=== PATIENT | female | born 1955 | race Caucasian/White ===

== ENCOUNTER → 2016-05-21 17:28 | Outpatient (CLI) | payer MEDICARE ==
[2014-05-23 12:30] VITALS: BMI 40.0
[~2016-05-21 17:28] MED LIST: AMBIEN10 MG PO; BAYER CHEWABLE81 MG PO; BRILINTA90 MG PO; CYCLOBENZAPRINE10 MG PO; EFFEXOR75 MG PO; GEMFIBROZIL600 MG PO; GLUCOPHAGE1000 MG PO; PRAVACHOL40 MG PO; RELAFEN500 MG PO; TIROSINT50 MCG PO; ULTRAM ER100 MG PO
== END | disposition home or self-care (01) ==
LOC: D.MAMMO 13:45
DX: Z12.31 Encounter for screening mammogram for malignant neoplasm of breast (principal)

== ENCOUNTER → 2016-06-16 16:34 | Outpatient (CLI) | payer MEDICARE ==
[2014-05-23 12:30] VITALS: BMI 40.0
== END | disposition home or self-care (01) ==
LOC: D.MAMMO 13:30
DX: R92.8 Other abnormal and inconclusive findings on diagnostic imaging of breast (principal)

== ENCOUNTER → 2016-08-19 19:04 | Outpatient (CLI) | payer MEDICARE ==
[2014-05-23 12:30] VITALS: BMI 40.0
== END | disposition home or self-care (01) ==
LOC: D.LABREF 19:04
DX: N39.0 Urinary tract infection, site not specified (principal)

== ENCOUNTER → 2016-10-19 19:18 | Outpatient (CLI) | payer MEDICARE ==
[2014-05-23 12:30] VITALS: BMI 40.0
== END | disposition home or self-care (01) ==
LOC: D.LABREF 19:18
DX: N39.0 Urinary tract infection, site not specified (principal)

== ENCOUNTER → 2016-12-03 18:50 | Outpatient (CLI) | payer MEDICARE ==
[2014-05-23 12:30] VITALS: BMI 40.0
== END | disposition home or self-care (01) ==
LOC: D.LABREF 18:50
DX: N39.0 Urinary tract infection, site not specified (principal)

== ENCOUNTER → 2016-12-16 16:40 | Outpatient (CLI) | payer MEDICARE ==
[2014-05-23 12:30] VITALS: BMI 40.0
== END | disposition home or self-care (01) ==
LOC: D.LABREF 16:40
DX: N39.0 Urinary tract infection, site not specified (principal)

== ENCOUNTER → 2017-01-04 21:05 | Outpatient (CLI) | payer MEDICARE ==
[2014-05-23 12:30] VITALS: BMI 40.0
== END | disposition home or self-care (01) ==
LOC: D.LABREF 21:05
DX: N39.0 Urinary tract infection, site not specified (principal)

== ENCOUNTER → 2017-02-02 18:57 | Outpatient (CLI) | payer MEDICARE ==
[2014-05-23 12:30] VITALS: BMI 40.0
== END | disposition home or self-care (01) ==
LOC: D.LABREF 18:57
DX: N39.0 Urinary tract infection, site not specified (principal)

== ENCOUNTER → 2017-07-12 16:52 | Outpatient (CLI) | payer MEDICARE ==
[2014-05-23 12:30] VITALS: BMI 40.0
== END | disposition home or self-care (01) ==
LOC: D.MAMMO 10:30
DX: R92.8 Other abnormal and inconclusive findings on diagnostic imaging of breast (principal)

== ENCOUNTER → 2018-01-12 21:55 | Outpatient (CLI) | payer MEDICARE ==
[2014-05-23 12:30] VITALS: BMI 40.0
== END | disposition home or self-care (01) ==
LOC: D.MAMMO 09:00
DX: R92.8 Other abnormal and inconclusive findings on diagnostic imaging of breast (principal)

== ENCOUNTER → 2019-01-03 09:09 | Outpatient (CLI) | payer MEDICARE, OTHER ==
[2014-05-23 12:30] VITALS: BMI 40.0
--- NOTE | 2019-01-12 08:42 | EC ---
PATIENT:ARGENIS ORANTES DATE OF SERVICE: 01/03/19 SEX: F MEDICAL RECORD: [id number] DATE OF : 51 [facility] AGE OF PATIENT: 63 ADMISSION DATE: 01/03/19 REFERRING PHYSICIAN: INTERPRETING PHYSICIAN: AMELIA KRUEGER MD ECHOCARDIOGRAM REPORT ECHO CHARGES 4 ECHO COMPLETE Date: 01/03/19 CLINICAL DIAGNOSIS: H/O CAD/HTN ECHOCARDIOGRAPHIC MEASUREMENTS (adult normal given) AC root (d.<3.7cm) 3.7 cm LV Septum d (<1.2 cm> 1.4 cm Valve Excursion 1.7 cm LV Septum (systole) 1.7 cm Left Atria (s.<4.0cm> 3.6 cm LVPW d(<1.2cm) 1.1 cm RV (d.<2.3cm) 2.3 cm LVPW (sytole) 1.9 cm LV diastole(<5.6CM) 5.0 cm MV E-F(>70mm/sec) cm LV systole 2.6 cm LVOT Diameter 1.7 cm MV exc.(>10mm) cm Est.ejection fraction (50-75%) % DOPPLER: LVIT cm/sec A 120 cm/sec E 84.0 cm/sec LA cm/sec RVSP 18.0 mmHg LVOT 116 cm/sec AOP1/2T m/s Asc. Ao 170 cm/sec RVOT 81.0 cm/sec RA cm/sec PA 120 cm/sec AV Gradient Peak 12.0 mmHg AV Mean 6.4 mmHg AV Area 1.5 cm MV Gradient Peak 7.5 mmHg MV Mean 2.3 mmHg MV Area cm COMMENTS: OP - HC Director Of Testing: Juaquin BRITTOE [employer] Instructor: 3 Dr. Mcgowan TAPE# PACS Pericardial Effusion Y DATE OF SERVICE: 01/03/2019 Adequate 2D, color flow imaging, spectral Doppler, and M-Mode Borderline LVH. LV internal dimension is normal. Wall motion is normal. EF is greater than or equal to 55%. Aortic valve is tricuspid. No evidence of stenosis by Doppler interrogation. Left atrium normal at 3.6 cm. Mitral valve shows no prolapse. Trace MR. Right-sided chambers are grossly normal. Trace TR. ECHOCARDIOGRAM REPORT [id number] ARGENIS ORANTES TRANSINT:[id number] Voice Confirmation ID: [id number] DOCUMENT ID: [id number] AMELIA KRUEGER MD at [id number] CC: [id number] DICTATION DATE: 01/04/19 1438 WATER SAFETY INSTRUCTOR: 01/04/19 1448 DEP CLI 01/03/19 [place] [id number] [place] [id number]
== END | disposition home or self-care (01) ==
LOC: D.HCCARDIO 09:00
PROVIDERS: ATTEND Internal Medicine Interventional Cardiology
DX: I25.10 Atherosclerotic heart disease of native coronary artery without angina pectoris (principal)

== ENCOUNTER 2019-01-31 14:52 | Outpatient (CLI) | payer MEDICARE, OTHER ==
[2014-05-23 12:30] VITALS: BMI 40.0
== END 2019-01-31 23:59 | disposition home or self-care (01) ==
LOC: D.MAMMO 14:52
PROVIDERS: ATTEND Family Medicine
DX: Z12.31 Encounter for screening mammogram for malignant neoplasm of breast (principal)

== ENCOUNTER → 2020-01-05 11:38 | Outpatient (CLI) | payer MEDICARE, OTHER ==
[2014-05-23 12:30] VITALS: BMI 40.0
== END | disposition home or self-care (01) ==
LOC: D.HCCECHO 11:00
PROVIDERS: ATTEND Internal Medicine Interventional Cardiology
DX: I25.10 Atherosclerotic heart disease of native coronary artery without angina pectoris (principal)

== ENCOUNTER 2020-08-02 14:15 | Outpatient (CLI) | payer MEDICARE, OTHER ==
[2014-05-23 12:30] VITALS: BMI 40.0
== END 2020-08-02 23:59 | disposition home or self-care (01) ==
LOC: D.MAMMO 14:15
PROVIDERS: ATTEND Family Medicine
DX: Z12.31 Encounter for screening mammogram for malignant neoplasm of breast (principal)